=== PATIENT | male | born 1950 | race Caucasian/White ===

== ENCOUNTER 2017-09-02 07:53 | Day surgery (SDC) | payer OTHER, SELFPAY ==
[2017-09-02] VITALS (8 sets, daily range): BP systolic 120–141; BP diastolic 77–94; PULSE 63–82; RESP 8–18; TEMP 36–36.6; O2SAT 93–97; BMI 33.1
[2017-09-02] MEDS: LACTATED RINGERS 1,000 ML 42 ML IV (08:42)
--- NOTE | 2017-09-02 08:46 | PM.PREOP ---
Pre-operative Note Interval Note Pre-op Check: History & Physical Reviewed by Physician
--- NOTE | 2017-09-02 08:47 | SUR.PREOP ---
Pt is ready for OR at this time. 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 PIV in place, Nursing admission database is completed, and LR is running at [facility]. Antibiotics hanging and Anesthesia will administer while in the OR.
[2017-09-02] MEDS: CEFAZOLIN 2 GM/100 ML FROZ.PIGGY IV (08:52)
--- NOTE | 2017-09-02 09:13 | SUR.OPER ---
Supine on padded OR bed, head on pillow, arms secured on padded arm boards at <90 degrees abduction, legs uncrossed, safety belt at thigh, tape over blanket over lower legs.
--- NOTE | 2017-09-02 09:24 | SUR.OPER ---
Counts confirmed by Kwame Sy STS, Brandin Hsu CLINICAL STUDIES SPECIALIST, new scrubs not in system
[2017-09-02] MEDS: CEFAZOLIN 1 GM VIAL IV (09:29)
[2017-09-02] MEDS: BUPIVACAINE 0.5% (PF) 30 ML VIAL INJ (09:35)
--- NOTE | 2017-09-02 10:09 | P.OP_ITS ---
Operative Date/Time/Diagnoses - Date of procedure: 09/02/17 Time of procedure: 10:04 Pre-op diagnosis: Enlarging and painful umbilical hernia Post-op diagnosis: same Procedure & Clinicians Procedure: Umbilical hernia repair Same procedure as scheduled: Yes Indications: Enlarging and painful umbilical hernia Surgeon: Saranya Rojas Click Yes if Unassisted: Yes Anesthesia Type: General (William) and Local Operative Notes Findings: 3 cm umbilical defect containing preperitoneal fat and a knuckle of small bowel Closure Type: primary Specimen(s): none sent Implants & Drains: 8 cm C qur mesh implant Applied: implant(s) Estimated Blood Loss (mL): 15 Procedure in detail: After obtaining informed consent, the patient was brought to the operating room and placed in the supine position on the operating table. Following successful induction of general endotracheal anesthesia, appropriate padding of all bony prominences, and placement of appropriate monitors, the abdomen was prepped and draped in the standard surgical fashion. A timeout was held per SCOAP protocol. We began by infiltrating a mixture of local anesthetics directly over the hernia defect in the fascia around the defect at the umbilicus. This was done to create a field block. An incision was then created directly over the hernia defect and the palpable sac. This was carried carefully down through the skin and subcutaneous tissue until the sac was easily visible and palpable. The edges of the hernia were carefully defined. It was determined to be approximately 3 cm in greatest dimension. The contents of the hernia sac consisted of preperitoneal fat a knuckle of small bowel. We elected to repair the defect with a 8 x 8 cm portion of C-Qur mesh. This was dipped in Ancef- containing solution and deployed into the defect per commercial real estate associate's directions. Careful attention was paid to the position of the mesh and to be sure that it was flattened in the space up against the abdominal wall. It was sewn into place with the securing tags using 1-0 Prolene suture. The wound was checked for hemostasis and irrigated with warm saline solution. When we were satisfied that all was clean and dry, the incision was closed in 2 layers with Vicryl and Monocryl suture, recreate button in a pleasing aesthetic fashion. The dermis of the skin over the umbilicus was sewn to the fascial edge of the umbilical defect. Monocryl was then used to create a subcuticular stitch. All sponge, needle, and instrument counts were correct at the conclusion of the case. The patient was allowed to awaken from anesthesia without difficulty and taken to the post-anesthesia care unit in good condition. Complications: none Condition: stable Disposition: PACU Plan for aftercare: 1. Discharge to home 2. Follow up with me in 2 weeks
--- NOTE | 2017-09-02 10:53 | SUR.PHASEI ---
BESIDE REPORT GIVEN TO XU DUMONT IN OPD. PT IN STABLE CONDITION, VSS. PT APPEARS COMFORTABLE AT THIS TIME. ABD BINDER IN PLACE AND SURGICAL SITE OBSERVED TO BE C/D/I. PT TOLERATING ORAL INTAKE WITHOUT ANY DIFFICULTLY. PT DENIES ANY NAUSEA. PT AWAITING RETURN OF SPOUSE FROM GETTING RX FILLED. BED IN LOWEST POSITION AND CALL LIGHT GIVEN TO PT.
--- NOTE | 2017-09-02 11:18 | SUR.PHASEII ---
Pt ready for discharge at this time. Teaching done with both and Pt and both indicate understanding of discharge and home instructions. Post op appointment with Dr Rojas has been made, Pt tolerating fluids, and has gotten discharge medications from the pharmacy. Pt has met d/c to home criteria and is in stable condition at time of release home. All questions were answered, abdominal binder is in place and Pt and Cori indicate wound care instructions as well. No questions or concerns at this time.
== END 2017-09-02 11:27 | disposition home or self-care (01) ==
PROVIDERS: PCP Internal Medicine; Visit Provider Surgery
PROC: (CPT 49585; principal; 2017-09-02 08:45)
DX: K42.0 Umbilical hernia with obstruction, without gangrene (principal); I10 Essential (primary) hypertension; F41.9 Anxiety disorder, unspecified
CPT/HCPCS: 49585; C1781; J0690; J1100; J2250; J2704; J2765; J3010

== ENCOUNTER → 2019-03-07 17:06 | Outpatient (CLI) | payer OTHER, SELFPAY ==
--- NOTE | 2019-03-07 | DI.MRI.S_ITS ---
PROCEDURE: MR LUMBAR SPINE WO CON INDICATIONS: low back pain TECHNIQUE: Noncontrast sagittal T1 spin echo and T2 fast echo, sagittal STIR, axial T1 and T2 fast spin echo through the lumbar spine. In cases with scoliosis, additional coronal T2 fast spin echo may be performed. COMPARISON: [facility], MR, L-SPINE WITHOUT CONTRAST, 01/21/2011, 19:02. [facility], CR, XR LUMBAR SPINE 2 OR 3 VIEWS, 02/18/2019, 13:48. FINDINGS: Image quality: Excellent. Alignment and Curvature: There is trace L1-L2, L2-L3 and L3-L4 retrolisthesis. Bones: Postsurgical changes compatible with right L3-L4 laminotomy. Reactive endplate change is noted adjacent to the T12-L1, L1-L2, L2-L3, L3-L4 and L4-L5 discs. No acute vertebral body compression fractures. Spinal Cord: Conus medullaris terminates at the T12-L1 disc level. Visualized cord demonstrates normal signal and size. Paraspinous Soft Tissues: No paravertebral masses. T12-L1: Loss of disc signal and height. Moderate, diffuse disc bulge. Mild bilateral facet hypertrophy. Moderate narrowing of the central canal. Mild right and moderate left neural foraminal narrowing. No neural compression. L1-L2: Loss of disc signal and height. Moderate, diffuse disc bulge. Mild bilateral facet hypertrophy. Moderate narrowing of the central canal. Mild bilateral neural foraminal narrowing. No neural compression. L2-L3: Loss of disc signal and height. Moderate, diffuse disc bulge. Mild bilateral facet hypertrophy. Moderate narrowing of the central canal. Right central disc protrusion. Right central disc protrusion impinges upon the traversing right L3 nerve root. Moderate bilateral neural foraminal narrowing. L3-L4: Loss of disc signal and slight loss of disc height. Mild, diffuse disc bulge. Mild bilateral facet hypertrophy. Mild narrowing of the central canal. Moderate to severe bilateral neural foraminal narrowing with slight compression of the exiting L3 nerve roots. L4-L5: Loss of disc signal and height. Mild, diffuse disc bulge. Mild right moderate left facet hypertrophy. Mild to moderate narrowing of the central canal. Moderate to severe bilateral neural foraminal narrowing with slight compression of the exiting L4 nerve roots. L5-S1: Loss of disc signal. Mild to moderate diffuse disc bulge. Severe bilateral facet hypertrophy. Moderate narrowing of the central canal. Moderate bilateral neural foraminal narrowing. No neural compression. IMPRESSION: 1. Multilevel degenerative disc disease. 2. Multilevel facet arthropathy. 3. Moderate T12-L1, L1-L2, L2-L3 and L5-S1 central canal narrowing. Mild to moderate L4-L5 central canal narrowing. Mild L3-L4 central canal narrowing. 4. Moderate to severe bilateral L3-L4 and L4-L5 neural foraminal narrowing with slight compression of the exiting bilateral L3 nerve roots and exiting bilateral L4 nerve roots. 5. Right central L2-L3 disc protrusion which abuts and displaces the traversing right L3 nerve root. Dictated by: Marli Linda MD, PhD on 03/08/2019 at 12:01 Approved by: Marli Linda MD, PhD on 03/08/2019 at 12:10
== END ==
PROVIDERS: Family Provider Internal Medicine; PCP Internal Medicine; Visit Provider Orthopaedic Surgery
DX: M51.26 Other intervertebral disc displacement, lumbar region (principal); M51.36 Other intervertebral disc degeneration, lumbar region; M51.37 Other intervertebral disc degeneration, lumbosacral region; M47.816 Spondylosis without myelopathy or radiculopathy, lumbar region; M47.817 Spondylosis without myelopathy or radiculopathy, lumbosacral region; M48.061 Spinal stenosis, lumbar region without neurogenic claudication; M48.07 Spinal stenosis, lumbosacral region
CPT/HCPCS: 72148

== ENCOUNTER → 2019-06-16 13:50 | Outpatient (CLI) | payer OTHER, SELFPAY ==
[2019-06-16 14:34] LABS: BUN Creatinine Ratio 24.5 (6-22); Blood Urea Nitrogen 24 mg/dL (9-20); Estimated Glomerular Filt Rate > 60.0 mL/min (>60)
--- NOTE | 2019-06-16 14:53 | DI.CT.S_ITS ---
PROCEDURE: CT ABDOMEN PELVIS WO/W CON INDICATIONS: Other microscopic hematuria TECHNIQUE: Optional 5 mm thick noncontrast images acquired from the diaphragm to the symphysis pubis. After the administration of intravenous contrast, 5 mm thick images acquired from the diaphragm to the symphysis pubis after a 10-minute delay. 2 mm thick coronal and sagittal reformats were then performed of the kidneys and ureters. For radiation dose reduction, the following was used: automated exposure control, adjustment of mA and/or kV according to patient size. COMPARISON: None. FINDINGS: Image quality: Excellent. Lung bases: Lung bases are clear. Heart size is normal. Urinary system: Both kidneys are normal in size, without hydronephrosis. There is a 6 mm, nonobstructing, left lower pole collecting system calcification. No perinephric fat stranding. There is normal bilateral renal enhancement. An exophytic 3 x 1 cm cyst arises from the lower pole of the left kidney. Small corticomedullary cysts are also seen in the left lower pole and right lower pole. No suspicious solid masses. Renal calyces appear normal in morphology when filled with contrast. Opacified portions of both ureters demonstrate normal caliber. Bladder wall thickness is normal. No calcified bladder stones. The prostate gland is moderately enlarged measuring 6.4 x 4.2 x 4.8 cm. Other solid organs: Liver is normal in size and enhancement. Gallbladder is normal. Biliary system is non dilated. Pancreas enhances normally. Spleen is normal in size and enhancement. No adrenal nodules. Peritoneum and bowel: Bowel loops demonstrate normal wall thickness and caliber. Diverticular disease of the descending and sigmoid colon. Normal appendix. No free fluid or air. Nodes and vessels: No retroperitoneal or mesenteric adenopathy by size criteria. Aorta and inferior vena cava are normal in size. Abdominal wall: No ventral hernias. Low-density soft tissue irregular thickening within the peritoneum in the umbilical region suggests recent hernia repair. Pelvis: No pathologic free pelvic fluid. Very small fat containing right inguinal hernias. Bones: No suspicious bony lesions. Multilevel degenerative disc and endplate changes throughout the lumbar spine, most severe at the L2-3 level. No vertebral body compression fractures. IMPRESSION: 1. 6 mm nonobstructing left lower pole intrarenal calcification. 2. No evidence of obstructive uropathy or other lesions in the urinary collecting system. 3. Moderate prostatomegaly. 4. Diverticulosis without acute diverticulitis. 5. 3.1 cm exophytic left renal cyst. Dictated by: Dorcas Ibrahim M.D. on 06/16/2019 at 15:55 Approved by: Dorcas Ibrahim M.D. on 06/16/2019 at 16:08
== END ==
PROVIDERS: Family Provider Internal Medicine; PCP Internal Medicine; Referring Provider Urology; Visit Provider Urology
DX: R31.29 Other microscopic hematuria (principal); K57.30 Diverticulosis of large intestine without perforation or abscess without bleeding; N28.1 Cyst of kidney, acquired; N20.0 Calculus of kidney; N40.0 Benign prostatic hyperplasia without lower urinary tract symptoms
CPT/HCPCS: 36415; 74178; 82565; 84520; Q9967

== ENCOUNTER 2020-10-07 21:57 | Emergency (ER) | payer OTHER, SELFPAY ==
[2020-10-07 22:15] VITALS: BP 161/84; PULSE 78; RESP 20; TEMP 36.7; O2SAT 99
[2020-10-07 22:36] LABS: Add Manual Diff / Slide Review NO; Basophils Absolute Auto 100 /uL (0-100); Basophils Percent Auto 0.6 % (0-2); Eosinophils Absolute Auto 0 /uL (0-450); Eosinophils Percent Auto 0.1 % (2-4); Hematocrit 47.5 % (41-53); Hemoglobin 15.6 g/dL (13.5-17.5); Lymphocytes Absolute Auto 1300 /uL (1100-4500); Lymphocytes Percent Auto 12.7 % (25-40); Mean Corpuscular HGB Conc 32.9 % (30-36); Mean Corpuscular Volume 85.3 fL (80-100); Monocytes Absolute Auto 400 /uL (0-900); Monocytes Percent Auto 3.9 % (3-14); Neutrophils Absolute Auto 8500 /uL (1500-7000); Neutrophils Percent Auto 82.7 % (50-75); Platelet Count 174 X10^3/uL (150-400); Red Blood Cell Count 5.56 X10^6/uL (4.5-5.9); Red Cell Distribution Width 15.2 % (11.6-14.8); White Blood Cell Count 10.3 X10^3/uL (4.5-11.0)
--- NOTE | 2020-10-07 22:38 | ED_ITS ---
HPI - Abdominal Pain General Chief Complaint: Abdominal Pain Stated Complaint: STOMACH PAINS Time Seen by Provider: 10/07/20 22:30 Source: patient Mode of arrival: Ambulatory History of Present Illness HPI narrative: The patient is here with abdominal pain. Earlier today he had right flank pain, not radiating. That pain is improved. He now has generalized abdominal discomfort, he feels bloated. He had chills, no fever. He has no mesfin sea, vomiting or diarrhea. BMs are actually decreased. His physician has indicated previously that he has IBS. He has also been previously diagnosed with a renal stone. He has never passed a kidney stone. He has no scrotum discomfort at this time. He has no dysuria or hematuria. He is status post umbilical hernia repair, no history of bowel obstruction. Related Data Home Medications Medication Instructions Recorded Confirmed Dehydroepiandrosterone, Micr 5 mg PO BID #0 02/27/11 09/14/17 (#DHEA) Fish Oil (#EPA FISH OIL) 1,000 mg PO BID #0 02/27/11 09/14/17 OMEPRAZOLE 20 mg PO BID #0 02/27/11 09/14/17 TRAZODONE HCL (Trazodone HCl) 100 mg PO HS #0 02/27/11 09/14/17 [VIT D] 2,000 iu PO QDAY #0 02/27/11 09/14/17 tadalafil 10 mg tablet (Cialis) 10 mg PO PRN #0 02/27/11 09/14/17 DIPHENHYDRAMINE HCL 25 mg PO HSP #0 03/04/11 09/14/17 (Diphenhydramine Hydrochloride) Nortriptyline Hydrochloride 25 mg PO HS #0 03/04/11 09/14/17 (PAMELOR) Oxycodone/Acetaminophen (Percocet 0 tab PO Q4HP #0 03/04/11 09/14/17 5-325 MG Tablet) polyethylene glycol 3350 17 17 gm PO QDAY #0 03/04/11 09/14/17 gram/dose oral powder (Miralax) Cymbalta 60 mg PO BID 09/02/17 09/14/17 doxazosin See Rx Instructions .ROUTE .COMPLEX 09/02/17 09/14/17 gabapentin 300 mg PO TID 09/02/17 09/14/17 propranolol 80 mg capsule,24 80 mg PO DAILY 09/02/17 09/14/17 hr,extended release Previous Rx's Medication Instructions Recorded ondansetron 4 mg disintegrating 4 mg PO Q6H PRN #20 tab MDD 4 09/02/17 tablet oxycodone-acetaminophen 10 mg-325 1 tab PO Q4-6H PRN #30 tab MDD 5 09/02/17 mg tablet (Endocet) metoclopramide HCl 10 mg tablet 10 mg PO Q8H PRN #30 tab 10/08/20 (Reglan) Allergies Allergy/AdvReac Type Severity Reaction Status Date / Time erythromycin base AdvReac Mild Gastrointestinal Verified 09/14/17 15:28 Upset Review of Systems Constitutional Constitutional: Denies body ache(s), Reports chills, Denies fatigue, Denies feve r(s) and Denies headache(s) Eyes Comments: No eye complaints. ENT Ears, Nose, Mouth, and Throat: Denies dizziness, Denies headache(s) and Denies sore throat Cardiovascular Cardiovascular: Denies chest pain, Denies rapid heart rate, Denies leg edema and Denies dyspnea Respiratory Respiratory: Denies cough and Denies dyspnea Gastrointestinal Gastrointestinal: Reports as per HPI Genitourinary Genitourinary: Reports as per HPI Musculoskeletal Musculoskeletal: Reports back pain Comments: Back pain, see HPI. Integumentary/Breasts Skin/Breast: Denies rash and Denies sores Neurologic Neurologic: Denies confusion, Denies dizziness, Denies headache(s) and Denies localized weakness Psychiatric Psychiatric: Denies confusion Endocrine Endocrine: Denies fatigue Hematologic/Lymphatic On Anticoagulants: No Patient History Medical History (Updated 10/08/20 @ 00:08 by Vikas Kitchen MD) Ankle fracture, left Asthma Elevated cholesterol Gastric reflux Hypertension Impaired vision Nerve pain PVCs (premature ventricular contractions) Sleep apnea Umbilical hernia Umbilical hernia Ventricular bigeminy Surgical History H/O hemorrhoidectomy H/O hernia repair H/O sinus surgery History of laminectomy History of vasectomy Social History household members: spouse Smoking Status: Never smoker Smoking Status: Never smoker Exam Initial Vital Signs Initial Vital Signs: Vital Signs Temperature 98.1 F 10/07/20 22:15 Pulse Rate 78 10/07/20 22:15 Respiratory Rate 20 10/07/20 22:15 Blood Pressure 161/84 H 10/07/20 22:15 Pulse Oximetry 99 10/07/20 22:15 Const General: cooperative, comfortable and well developed [facility] Head: normocephalic Mouth: oral mucosae normal Eyes General: appearance normal, both eyes and all related structures Pupils: PERRL EOM: EOM intact bilaterally Neck Neck: No JVD Chest Chest: normal inspection of the chest Resp Effort & Inspection: normal respiratory effort Auscultation: clear to auscultation bilaterally Cardio Rate: regular rate Rhythm: regular rhythm Heart Sounds: S1 normal, S2 normal and no murmurs GI Inspection: distended Palpation: soft Percussion: normal to percussion Auscultation: normal bowel sounds and other (No guarding or rebound) Back/Spine/Pelvis Back: No CVA tenderness Skin General: no rashes or lesions noted Neuro General: patient alert, patient oriented x3 and no focal motor deficits Extrem General: normal to inspection, no pedal edema and no calf tenderness Psych Appearance: grossly normal Course Course Course Narrative: Abdominal discomfort is relieved the Reglan and Benadryl. On repeat exam, his abdomen is nontender. Bowel sounds are normal. He mentioned he may have IBS, I will treat him with Reglan. Orders Ordered: ED Orders 10/07/20 22:15 Complete Blood Count AUTO DIFF Stat Comprehensive Metabolic Panel Stat Lipase Stat 10/07/20 22:50 Urine Microscopic Stat Discontinued Medications Diphenhydramine HCl (Diphenhydramine 50 Mg/Ml Vial) 25 mg IV NOW ONE Stop: 10/07/20 22:38 Last Admin: 10/07/20 22:42 Dose: 25 mg Documented by: FROILAN Metoclopramide HCl (Metoclopramide 10 Mg/2 Ml Inj) 10 mg IV NOW ONE Stop: 10/07/20 22:38 Last Admin: 10/07/20 22:42 Dose: 10 mg Documented by: FROILAN Vital Signs Vital signs: Vital Signs - 8 hr 10/07/20 22:15 10/07/20 22:48 10/07/20 22:49 Temperature 98.1 F Pulse Rate 78 58 L Respiratory Rate 20 Blood Pressure 161/84 H 182/79 H Pulse Oximetry 99 95 95 10/07/20 23:00 Temperature Pulse Rate 62 Respiratory Rate 16 Blood Pressure 168/77 H Pulse Oximetry 94 MDM - Abdominal Pain Lab Data Result diagrams: 10/07/20 22:15 10/07/20 22:15 Labs: Lab Results 10/07/20 10/07/20 10/07/20 Range/Units 22:15 22:15 22:50 WBC 10.3 (4.5-11.0) X10^3/uL RBC 5.56 (4.5-5.9) X10^6/uL Hgb 15.6 (13.5-17.5) g/dL Hct 47.5 (41-53) % MCV 85.3 (80-100) fL MCH 28.0 (26-34) PG MCHC 32.9 (30-36) % RDW 15.2 H (11.6-14.8) % Plt Count 174 (150-400) X10^3/uL Neut % (Auto) 82.7 H (50-75) % Lymph % (Auto) 12.7 L (25-40) % [place] % (Auto) 3.9 (3-14) % Eos % (Auto) 0.1 L (2-4) % Baso % (Auto) 0.6 (0-2) % Neut # (Auto) 8500 H (8483-3885) /uL Lymph # (Auto) 1300 (3551-2656) /uL [place] # (Auto) 400 (0-900) /uL Eos # (Auto) 0 (0-450) /uL Baso # (Auto) 100 (0-100) /uL Sodium 140 (137-145) mmol/L Potassium 4.2 (3.4-5.1) mmol/L Chloride 107 (98-107) mmol/L Carbon Dioxide 24 (22-32) mmol/L BUN 31 H (9-20) mg/dL Creatinine 1.19 (0.66-1.25) mg/dL Estimated GFR > 60.0 (>60) mL/min BUN/Creatinine Ratio 26.1 H (6-22) Glucose 136 H (80-110) mg/dL Calcium 9.7 (8.4-10.2) mg/dL Total Bilirubin 0.6 (0.2-1.3) mg/dL AST 32 (17-59) IU/L ALT 22 (<50) IU/L Alkaline Phosphatase 125 (38-126) U/L Total Protein 7.8 (6.3-8.2) g/dL Albumin 4.4 (3.5-5.0) g/dL Globulin 3.4 (1.7-4.1) g/dL Albumin/Globulin Ratio 1.3 (1.0-2.8) Lipase 29 (23-300) U/L Urine RBC 5-10/hpf H (0-5/HPF) Urine WBC 1-5/hpf (0-5/HPF) Ur Squamous Epith Cells 0-1 /hpf (0-5/HPF) Urine Bacteria Few (2-10) H (None) Hyaline Casts 0-1/lpf (None) Urine Mucus 2+ H (Negative) Ur Culture Indicated? Cult not indicated Point of care testing: Urine Dip Bedside Urine Glucose Negative Bedside Urine Bilirubin - Negative Bedside Urine Ketone +/- 5 Urine Specific [place] 1.030 Bedside Urine Occult Blood + Bedside Urine pH 6 Bedside Urine Protein + 30 Bedside Urine Urobilinogen - Negative Bedside Urine Nitrite - Negative Bedside Urine Leukocytes - Negative Esterase ECG Data Attestation: I personally reviewed and interpreted this ECG as follows: (Sinus bradycardia rate 56 beats per minute. Incomplete RBBB. Probable old septal MN, no acute ST T wave changes. No ectopy.) Discharge Plan Departure Patient Disposition: Home Clinical Impression: Irritable bowel syndrome Qualifiers: Irritable bowel syndrome type: with constipation Qualified Code(s): K58.1 - Irritable bowel syndrome with constipation Instructions: Irritable Bowel Syndrome Activity Restrictions/Additional Instructions: Be sure you are drinking plenty of fluids all times, you should be on a high- fiber diet. Continue current medications. Reglan every 8 hours as needed for abdominal discomfort. Follow-up with your doctor within a week to recheck, return here if symptoms worsen. Prescriptions: New metoclopramide HCl [Reglan] 10 mg tablet 10 mg PO Q8H PRN (Reason: nausea and vomiting) Qty: 30 RF: 0 No Action tadalafil [Cialis] 10 MG tablet 10 mg PO PRN Qty: 0 RF: 0 OMEPRAZOLE 20 mg PO BID Qty: 0 RF: 0 TRAZODONE HCL (Trazodone HCl) 100 mg PO HS Qty: 0 RF: 0 [VIT D] 2,000 iu PO QDAY Qty: 0 RF: 0 Dehydroepiandrosterone, Micr (#DHEA) 5 mg PO BID Qty: 0 RF: 0 Fish Oil (#EPA FISH OIL) 1,000 mg PO BID Qty: 0 RF: 0 polyethylene glycol 3350 [Miralax] 119 GM powder 17 gm PO QDAY Qty: 0 RF: 0 Nortriptyline Hydrochloride (PAMELOR) 25 mg PO HS Qty: 0 RF: 0 DIPHENHYDRAMINE HCL (Diphenhydramine Hydrochloride) 25 mg PO HSP Qty: 0 RF: 0 Oxycodone/Acetaminophen (Percocet 5-325 MG Tablet) 0 tab PO Q4HP Qty: 0 RF: 0 propranolol 80 mg Capsule,Extended Release 24 Hr 80 mg PO DAILY RF: 0 gabapentin 300 Mg 300 mg PO TID RF: 0 Cymbalta 60 Mg 60 mg PO BID RF: 0 doxazosin 4 Mg See Rx Instructions .ROUTE .COMPLEX RF: 0 oxycodone-acetaminophen [Endocet] 10-325 mg tablet 1 tab PO Q4-6H MDD 5 PRN (Reason: pain) Qty: 30 RF: 0 ondansetron 4 mg tablet,disintegrating 4 mg PO Q6H MDD 4 PRN (Reason: nausea and vomiting) Qty: 20 RF: 0 Referrals: Fredi Ndiaye MD [Primary Care Provider] -
[2020-10-07] MEDS: diphenhydrAMINE 50 MG/ML VIAL 25 MG IV (22:42)
[2020-10-07] MEDS: METOCLOPRAMIDE 10 MG/2 ML INJ IV (22:42)
[2020-10-07 22:45] LABS: Alanine Aminotransferase 22 IU/L (<50); Albumin 4.4 g/dL (3.5-5.0); Albumin Globulin Ratio 1.3 (1.0-2.8); Alkaline Phosphatase 125 U/L (38-126); Aspartate Aminotransferase 32 IU/L (17-59); BUN Creatinine Ratio 26.1 (6-22); Bilirubin Total 0.6 mg/dL (0.2-1.3); Blood Urea Nitrogen 31 mg/dL (9-20); Calcium 9.7 mg/dL (8.4-10.2); Carbon Dioxide 24 mmol/L (22-32); Chloride 107 mmol/L (98-107); Estimated Glomerular Filt Rate > 60.0 mL/min (>60); Globulin 3.4 g/dL (1.7-4.1); Glucose 136 mg/dL (80-110); HEMOLYSIS 22 (0-50); Lipase 29 U/L (23-300); Potassium 4.2 mmol/L (3.4-5.1); Sodium 140 mmol/L (137-145); Total Protein 7.8 g/dL (6.3-8.2)
[2020-10-07 22:48] VITALS: O2SAT 95
[2020-10-07 22:49] VITALS: BP 182/79; PULSE 58; O2SAT 95
[2020-10-07 23:00] VITALS: BP 168/77; PULSE 62; RESP 16; O2SAT 94
[2020-10-07 23:18] LABS: Bacteria Urine Few (2-10); Culture Indicated Urine Cult Not Indicated; Hyaline Casts Urine 0-1/LPF; Mucus Urine 2+ (Negative); RBC Urine 5-10/HPF (0-5/HPF); Squamous Epithelial Cell Urine 0-1 /HPF (0-5/HPF); WBC Urine 1-5/HPF (0-5/HPF)
[2020-10-08 00:23] VITALS: BP 139/70; PULSE 71; RESP 16; O2SAT 96
== END 2020-10-08 00:24 | disposition home or self-care (01) ==
PROVIDERS: Emergency Provider Emergency Medicine; Family Provider Internal Medicine; PCP Internal Medicine
DX: K58.1 Irritable bowel syndrome with constipation (principal)
CPT/HCPCS: 36415; 80053; 81003; 81015; 83690; 85025; 93005; 93010; 96374; 96375; 99284; J1200; J2765

== ENCOUNTER → 2021-07-08 13:07 | Outpatient (CLI) | payer OTHER, SELFPAY ==
--- NOTE | 2021-07-08 | DI.RAD.S_ITS ---
PROCEDURE: FL BARIUM SWALLOW W SPEECH INDICATIONS: Dysphagia, unspecified COMPARISON: None. TECHNIQUE: Examination was conducted in conjunction with speech pathology per standard protocol. In the lateral projection, filming was performed of the patient swallowing. AP projection filming may also be performed with patient swallowing. COMPARISON: FINDINGS: Function: The oral preparatory phase appears normal, with containment within normal limits. The subsequent oral propulsive phase, pharyngeal phase, and esophageal phase of swallowing also appear normal with all proffered substances. There is laryngotracheal penetration with sequential boluses. No aspiration. No pathologic vallecular pooling. Morphology: No cricopharyngeal bar is identified. No cervical esophageal webs. No Zenker's diverticulum. No strictures. Rapid passage of the barium tablet. Small hiatal hernia. IMPRESSION: Intermittent laryngotracheal penetration. Small hiatal hernia. Please see separately dictated speech pathologist's report. Dictated by: Tio Barber M.D. on 07/08/2021 at 14:41 Approved by: Tio Barber M.D. on 07/08/2021 at 15:05
--- NOTE | 2021-07-08 16:42 | ST.SWALLOW ---
Visit Care Team Role Provider Type Fredi Ndiaye MD Family Provider Non-Staff Primary Care Provider Specialty: Internal Medicine Address: [address] 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 Modified Barium Swallow Study Start: 07/08/21 16:18 Freq: Status: Active Protocol: Document 07/08/21 16:18 SYLVAIN (Rec: 07/08/21 16:42 SYLVAIN [id number]) Modified Barium Swallow Study Total Time Visit Start Time 13:30 Visit Stop Time 14:10 Total Visit Minutes 40 Referral Referring Physician Markus Magana MD Reason for Referral Dysphagia Setting Setting Outpatient Care Patient Information Identification Type Name,ID Card Patient History The pt is a 70-yr-old male with complaints of coughing primarily with liquids, especially citrus, and rare coughing with solids occurring over the last year and increasing in recent months. He reported presence of hiatal hernia, GERD, and PND. Subjective Observations The pt arrived on time and provided case history supplemental to medical records. He was seated in chair and procedure was explained. Pt was agreeable to participation. Patient Positioning Position View Lat-A/P Imaging Lateral View Textures Administered Trials Presented Thin Liquid via Spoon,Thin Liquid via Cup,[place] Liquid via Spoon,[place] Liquid via Cup,Honey Liquid via Spoon, Dysphagia Blenderized Textures ,Regular Textures Oral Phase Source: MBSIMP (TM) (C) Bolus Specific Scoring Grid Lip Closure No Impairment (WNL) Tongue Control During Bolus Hold No Impairment (WNL) Bolus Prep/Mastication No Impairment (WNL) Bolus Transport/Lingual Motion No Impairment (WNL) A/P Lingual Propulsion Delay Occ escape of bolus to vallecula prior to a/p propulsion Oral Residue WFL Residue Clearing No Impairment (WNL) Nasal Regurgitation No Additional Oral Phase Observations Oral Peripheral Exam: WNL. Pt is missing a few molars. Otherwise, dentition is complete and in good condition. Features were all symmetrical and WNL for strength, coordination and ROM. Occasional posterior escape to pharynx prior to swallow onset was observed, indicating mildly reduced back of tongue strength. Pharyngeal Phase Source: MBSIMP (TM) (C) Bolus Specific Scoring Grid Delayed Initiation of Pharyngeal Swallow Yes Soft Palate Elevation No Impairment (WNL) Tongue Base Strength/Range of Motion Minimal Impairment Residue Along the Tongue Base Yes Clearance of Residue Along Tongue Base No Impairment (WNL) Laryngeal Elevation Mild Impairment Anterior Hyoid Movement Mild Impairment Epiglottic Range of Motion No Impairment (WNL) Vallecular Residue Yes: Trace to Mild Clearance of Vallecular Residue WFL Laryngeal Vestibular Closure Mild Impairment Pharyngeal Stripping Wave Minimal Impairment Pharyngeal Contraction No Impairment (WNL) Posterior Pharyngeal Wall Residue No Upper Esophageal Sphincter Opening No Impairment (WNL) Residue in the Pyriform Sinuses No Esophageal Clearance Upright Position WFL Pharyngoesophageal Backflow Observed No Additional Pharyngeal Phase Observations Flash penetration (PAS 2) of thin and nectar-thick liquids was observed during consecutive sips. Hyolaryngeal elevation and anterior excursion were present but reduced, likely contributing to reduced closure of the laryngeal vestibule, allowing for penetration. No aspiration was observed. A/P View Textures Administered Trials Presented [place] Liquid via Cup, Dysphagia Blenderized Textures ,Barium Tablet A/P View Observations Pharyngeal Contraction No Impairment (WNL) Residue Observed Valleculae Right,Valleculae Left Esophageal Function WFL Esophageal Clearance Upright Position WFL Additional Observations Upon initial A/P view of esophagus, residue from previous trials was observed. All trails administered in A/P view then cleared without difficulty. Radiologist noted small hiatal hernia. The pt already is scheduled for GI consultation. Clinical Impressions Dysphagia Type Mild oropharyngeal dysphagia Findings The pt presents with mild oropharyngeal dysphagia consistent with age and secondary to mild weakness of lingual and hyolaryngeal musculature. This allows for escape of boluses to the vallecula prior to onset of swallow and for laryngeal penetration of thin and nectar -thick liquids during consecutive sipping. Recommend a short course of dysphagia therapy targeting exercises to increase strength, coordination and ROM of swallow musculature. Also recommend the pt consume liquids in single sips. The pt is already scheduled to be seen by GI, which is recommended for assessment of hiatal hernia and GERD and potential impact on swallow function and safety. Rehabilitation Potential Excellent Patient Appropriate for Therapy Yes Recommendations Diet Liquids Order Thin Diet Order Regular Medication Recommendation As Tolerated Aspiration Precautions Recommended Precautions Upright at 90 Degrees,Small Bites/Sips Treatment Plan Therapy Recommendations Outpatient Speech Therapy Short Term Goals 1. The pt will follow safe swallow strategies to reduce risk of aspiration. 2. The pt will perform exercises to improve strength, coordination, and ROM of lingual and hyolaryngeal musculature to reduce risk of aspiration and increase safety and comfort with oral intake. Fpc Goals 1. The pt will tolerate regular textures and thin liquids without overt s/sx of aspiration.
== END ==
PROVIDERS: Family Provider Internal Medicine; PCP Internal Medicine; Referring Provider Internal Medicine Critical Care Medicine; Visit Provider Internal Medicine Critical Care Medicine
DX: R13.10 Dysphagia, unspecified (principal); K44.9 Diaphragmatic hernia without obstruction or gangrene; K21.00 Gastro-esophageal reflux disease with esophagitis, without bleeding; J45.20 Mild intermittent asthma, uncomplicated
CPT/HCPCS: 74230; 92611

== ENCOUNTER → 2021-12-03 09:10 | Outpatient (CLI) | payer OTHER, SELFPAY ==
[2021-12-03 10:59] LABS: COVID19 -Nasal RAPID Negative (Negative)
== END ==
PROVIDERS: Family Provider Internal Medicine; PCP Internal Medicine; Visit Provider Surgery
DX: Z01.812 Encounter for preprocedural laboratory examination (principal); Z20.822 Contact with and (suspected) exposure to COVID-19
CPT/HCPCS: 87635; C9803

== ENCOUNTER 2021-12-04 10:09 | Day surgery (SDC) | payer OTHER, SELFPAY ==
[2021-11-25 08:20] VITALS: BMI 32.3
[2021-12-04] VITALS (9 sets, daily range): BP systolic 101–136; BP diastolic 64–88; PULSE 56–80; RESP 10–20; TEMP 36.3–36.6; O2SAT 91–99; BMI 32.3; BMI 30.4
[2021-12-04] MEDS: LACTATED RINGERS 1,000 ML 100 ML IV (10:59)
[2021-12-04] MEDS: ACETAMINOPHEN 325 MG TABLET 975 MG PO (11:00)
--- NOTE | 2021-12-04 11:19 | PM.HP.1 ---
History of Present Illness History of Present Illness Date Patient Seen: 12/04/21 Time Patient Seen: 11:20 Chief complaint: SDC Narrative: 71-year-old male here for a open repair of recurrent umbilical hernia. Please refer to the H&P from August 2021 for further detail. No interval changes in health. Patient History Medical History Ankle fracture, left Asthma COPD (chronic obstructive pulmonary disease) Elevated cholesterol Gastric reflux Hypertension Impaired vision Nerve pain PVCs (premature ventricular contractions) Sleep apnea Umbilical hernia Umbilical hernia Ventricular bigeminy Surgical History H/O hemorrhoidectomy H/O hernia repair H/O sinus surgery History of laminectomy History of vasectomy Hx of hernia repair (09/02/17) Family & Social History Social History: household members spouse Tobacco & Substance use: Smoking Status Never smoker alcohol intake never Substance Use Type does not use Meds Home Medications and Allergies Home Medications Medication Instructions Recorded Confirmed Type polyethylene glycol 3350 17 17 gm PO QDAY ##0 03/04/11 12/04/21 History gram/dose oral powder (Miralax) gabapentin 300 mg capsule 300 mg PO QID PRN neuropathy 09/02/17 12/04/21 History dextroamphetamine sulfate 15 mg See Rx Instructions .Route .COMPLEX 09/05/21 12/04/21 History capsule,extended release (Dexedrine Spansule) ibuprofen 200 mg tablet 200 mg PO BID 09/05/21 12/04/21 History lamotrigine 100 mg tablet 100 mg PO DAILY 09/05/21 12/04/21 History (Lamictal) omeprazole 20 mg capsule,delayed 20 mg PO BID 09/05/21 12/04/21 History release propranolol 60 mg tablet 60 mg PO ONCE 09/05/21 12/04/21 History tamsulosin 0.4 mg capsule 0.8 mg PO BEDTIME 09/05/21 12/04/21 History testosterone 1 % (50 mg/5 gram) 1 packet transdermal DAILY 09/05/21 12/04/21 History transdermal gel packet albuterol 90 mcg/actuation aerosol 90 mcg inhalation Q4HR PRN 12/04/21 12/04/21 History inhaler Shortness Of Breath cholecalciferol (vitamin D3) 50 50 mcg PO DAILY 12/04/21 12/04/21 History mcg (2,000 unit) capsule (Vitamin D3) duloxetine 60 mg capsule,delayed 60 mg PO DAILY 12/04/21 12/04/21 History release trazodone 50 mg tablet 50 mg PO DAILY 12/04/21 12/04/21 History Allergies Allergy/AdvReac Type Severity Reaction Status Date / Time bupropion [From Wellbutrin] Allergy Severe inability Verified 12/04/21 10:30 to focus cariprazine [From Vraylar] Allergy Severe Diarrhea Verified 12/04/21 10:30 fluoxetine [From Prozac] Allergy Severe agressivene Verified 12/04/21 10:30 ss erythromycin base AdvReac Mild Gastrointestinal Verified 12/04/21 10:30 Upset Exam Vital Signs (past 8 hours): - 12/04/21 10:44 Temperature 97.9 F Pulse Rate 80 Respiratory Rate 12 Blood Pressure 136/88 Pulse Oximetry 95 Oxygen Delivery Method Room Air Oxygen Delivery Method Room Air Narrative Exam Narrative: General adult male alert oriented no acute distress Abdomen reducible umbilical hernia moderate size. Assessment & Plan Assessment and plan (1) Recurrent umbilical hernia: Status: Acute Assessment & Plan narrative: 71-year-old male with a recurrent umbilical hernia here for open elective repair. We reviewed operative details as well as the operative risks including bleeding infection recurrence, damage to surrounding structures chronic pain. He understands that he is at elevated risk of recurrence given his COPD. His questions have been answered and he is in agreement with this plan Time Spent With Patient Critical Care time: I spent a total of [] minutes of critical care time on this patient's care today; this time is exclusive of procedural time.
[2021-12-04] MEDS: CEFAZOLIN 2 GM/100 ML PREMIX 100 ML IV (11:45)
[2021-12-04] MEDS: BUPIVACAINE 0.25% (PF) VIAL 30 ML INJ (12:04)
--- NOTE | 2021-12-04 12:23 | SUR.OPER ---
Supine on padded OR bed, head on pillow, arms secured on padded arm boards at <90 degrees abduction, legs uncrossed, safety belt at thigh, tape over blanket over lower legs. Gel pad under bilateral heels. Pillow under knees.
[2021-12-04] MEDS: PIPERACILLIN/TAZO 3.375 GM in SODIUM CHLORIDE 0.9% 100 ML IV (12:25)
--- NOTE | 2021-12-04 13:14 | P.OP_ITS ---
Operative Date/Time/Diagnoses Date of procedure: 12/04/21 Time of procedure: 13:39 Pre-op diagnosis: Recurrent umbilical hernia Post-op diagnosis: same Procedure & Clinicians Procedure: Open repair of recurrent umbilical hernia. Explantation of mesh Same procedure as scheduled: Yes Indications: 71-year-old male had previous umbilical hernia repair with mesh who is developed a recurrence. Surgeon: Gary Alas Click Yes if Unassisted: Yes Anesthesia Type: General Operative Notes Findings: Recurrence at the superior aspect of prior umbilical repair. Purulence material within the previous mesh concerning for mesh infection. Cultures taken Specimen(s): other (Mesh, umbilical wound culture) Estimated Blood Loss (mL): 50 Procedure in detail: Patient was brought to the operating room placed supine on the table. Bilateral lower extremity compression devices were applied. He received 2 g of Ancef prior to skin incision. General anesthesia was induced and he was intubated with an endotracheal tube. He was prepped and draped in sterile fashion. Time- out was performed. Infraumbilical incision was made, the umbilical skin was adherent to the mesh. The skin was then carefully taken off of the mesh however it at the superior aspect of the repair I had to open the skin in order to rel ease the mesh. There was a recurrence of omentum through the superior aspect of the prior repair. As I was excising the prior mesh from the fascia approximately 30 mL of purulent brown fluid was encountered. The entirety of the mesh was sharply removed there was no bowel within the fascial defect. The mesh appeared to be infected on visual inspection. Cultures were taken. In the setting of possible mesh infection I irrigated the wound thoroughly but I chose not to place any new mesh for concern of contamination. This does place him at higher risk of reoccurence although the alternative mesh infection would be worse. The fascia around the hernia was then exposed circumferentially. The peritoneum was closed with a running Vicryl suture. The fascia was then reapproximated with interrupted Ethibond suture. Subcutaneous tissue was closed with Vicryl skin with Monocryl followed by the application of Dermabond. Patient tolerated the operation well. Complications: none Post-operative Condition: stable Disposition: same day surgery
[2021-12-04] MEDS: ALBUTEROL 2.5 MG/3 ML NEB (ADULT) INH (13:41)
--- NOTE | 2021-12-04 14:17 | SUR.PHASEII ---
1400: Pt A&Ox4, VSS, denies any distress and ready to transition to phase 2. Spoke with spouse and updated on pt condition, and discharge instructions reviewed with time allowed for questions. 1415: Report given to XU Thompson will transfer care now.
== END 2021-12-04 14:34 | disposition home or self-care (01) ==
PROVIDERS: Family Provider Internal Medicine; PCP Internal Medicine; Referring Provider Surgery; Visit Provider Surgery
PROC: (CPT 49585; principal; 2021-12-04 11:15)
DX: K42.9 Umbilical hernia without obstruction or gangrene (principal); J44.9 Chronic obstructive pulmonary disease, unspecified; E78.5 Hyperlipidemia, unspecified; I10 Essential (primary) hypertension; K21.9 Gastro-esophageal reflux disease without esophagitis; G47.33 Obstructive sleep apnea (adult) (pediatric)
CPT/HCPCS: 49585; 82962; 87070; 87075; 87176; 87205; J0690; J1100; J1885; J2250; J2405; J2543; J2704; J3010; J3490; J7613

== ENCOUNTER → 2021-12-31 14:56 | Outpatient (CLI) | payer OTHER, SELFPAY ==
[2021-12-31 16:43] LABS: BUN Creatinine Ratio 17.3 (6-22); Blood Urea Nitrogen 17 mg/dL (9-20); Estimated Glomerular Filt Rate > 60 mL/min (>60)
--- NOTE | 2021-12-31 16:47 | DI.CT.S_ITS ---
PROCEDURE: CT ABDOMEN PELVIS W CON INDICATIONS: evaluate for umbilical hernia recurrence TECHNIQUE: After the administration of oral and intravenous contrast, axial sections were acquired from the lung bases to the pubic symphysis. Coronal and sagittal reformats were performed. For radiation dose reduction, the following was used: automated exposure control, adjustment of mA and/or kV according to patient size. COMPARISON:[facility], CT, CT ABDOMEN PELVIS WO/W CON, 06/16/2019, 14:47. FINDINGS: Image quality: Excellent. Lung bases: Lung bases are clear. Small hiatal hernia. Heart: No significant findings. ABDOMEN: Liver: Liver is unremarkable in appearance without focal intrahepatic abnormalities. No intrahepatic or extrahepatic biliary ductal dilatation. Gallbladder: Unremarkable. Biliary ducts: Unremarkable. Pancreas: Unremarkable. Spleen: Unremarkable. Adrenal Glands: Unremarkable. Kidneys and Ureters: Right kidney and ureter appear normal. There is a nonobstructing 1.0 x 0.7 cm stone noted in the left renal pelvis measuring 660 Hounsfield units. No left-sided hydronephrosis. No perinephric stranding. Left ureter is normal in course and caliber. Stomach and Bowel: Stomach, small bowel loops, and colon are unremarkable. Scattered colonic diverticulosis without acute diverticulitis. Peritoneum: No abnormal intraperitoneal fluid. No free air. Ventral Wall: There is a well-circumscribed fluid attenuation collection visualized in the ventral midline abdomen within the subcutaneous soft tissues of the abdominal wall measuring 8.2 x 3.2 cm in axial cross-sectional dimension. No rim enhancement. No adjacent stranding. There is a possible neck extending to the midline anterior abdominal musculature/fascia without definite defect visualized. Abdominal Nodes: No retroperitoneal or mesenteric adenopathy by size criteria. Vessels: Scattered atherosclerotic calcifications of the abdominal aorta and iliac vessels without aneurysmal dilatation. The inferior vena cava appears patent. PELVIS: Pelvic Organs: Mild prominence of the prostate gland. Bladder: Unremarkable. Pelvic Nodes: No enlarged lymph nodes. Miscellaneous: No inguinal hernias are seen. Bones: No acute vertebral body compression fractures. Multilevel spondylitic changes throughout the imaged spine. No suspicious osseous lesions. Findings suggestive of prior right L3 hemilaminectomy. IMPRESSION: Well-circumscribed fluid collection within the subcutaneous soft tissues of the ventral midline abdomen at the level of the umbilicus measuring 8.2 x 3.2 cm with possible neck leading to the ventral abdominal wall musculature/fascia. No definite ventral wall defect/hernia identified. Colonic diverticulosis without acute diverticulitis. Non-obstructing 1.0 x 0.7 cm left renal pelvic stone without hydronephrosis or perinephric stranding. Atherosclerosis. Other chronic findings as above Approved by: Pascual Arceo M.D. on 01/01/2022 at 11:47
== END ==
PROVIDERS: Family Provider Internal Medicine; PCP Internal Medicine; Referring Provider Surgery; Visit Provider Surgery
DX: K42.9 Umbilical hernia without obstruction or gangrene (principal); K44.9 Diaphragmatic hernia without obstruction or gangrene; K57.90 Diverticulosis of intestine, part unspecified, without perforation or abscess without bleeding; N20.0 Calculus of kidney; I70.0 Atherosclerosis of aorta
CPT/HCPCS: 36415; 74177; 82565; 84520

== ENCOUNTER → 2022-02-26 10:07 | Outpatient (CLI) | payer OTHER, SELFPAY ==
[2022-02-26 10:35] LABS: Estimated Glomerular Filt Rate > 60 mL/min (>60)
--- NOTE | 2022-02-26 10:47 | DI.CT.S_ITS ---
PROCEDURE: CT IVP A/P W/WO INDICATIONS: HISTORY OF BLADDER CANCER TECHNIQUE: Optional 5 mm thick noncontrast images acquired from the diaphragm to the symphysis pubis. After the administration of intravenous contrast, 5 mm thick images acquired from the diaphragm to the symphysis pubis after a 10-minute delay. 2 mm thick coronal and sagittal reformats were then performed of the kidneys and ureters. For radiation dose reduction, the following was used: automated exposure control, adjustment of mA and/or kV according to patient size. COMPARISON: [facility], CT, CT ABDOMEN PELVIS WO/W CON, 06/16/2019, 14:47. [facility], CT, CT ABDOMEN PELVIS W CON, 12/31/2021, 16:53. FINDINGS: Image quality: Excellent. Lung bases: Lung bases are clear. Heart size is normal. Urinary system: On precontrast imaging, there is again seen a stone within the left renal collecting system that measures up to 9 mm and measures 900 Hounsfield units. The kidneys demonstrate normal size and enhance symmetrically. At the inferior pole of the left kidney, there is an exophytic nonenhancing water density cyst seen that measures 3.5 cm. No perinephric fat stranding. Renal calyces appear normal in morphology when filled with contrast. Opacified portions of both ureters demonstrate normal caliber. Bladder wall thickening is seen anteriorly. On these images, no lise bladder wall masses are detected. Other solid organs: Liver is normal in size and enhancement. Gallbladder wall is not thickened. Biliary system is non dilated. Pancreas enhances normally. Spleen is normal in size and enhancement. No adrenal nodules. Peritoneum and bowel: Bowel loops demonstrate normal wall thickness and caliber. No free fluid or air. Colonic diverticulosis is seen, without findings of active diverticulitis. Nodes and vessels: No retroperitoneal or mesenteric adenopathy by size criteria. Aorta and inferior vena cava are normal in size. Atherosclerotic calcification is noted. Abdominal wall: No ventral hernias. Within the anterior abdominal wall near the umbilicus, there is a relatively poorly defined fluid collection seen that measures 5 x 1.5 cm in greatest axial dimension, which is clearly decreased in size compared to the prior CT. Pelvis: No pathologic free pelvic fluid. No inguinal adenopathy. There is a fat containing right inguinal hernia. The prostate measures 6.3 cm transversely. Bones: No suspicious bony lesions. No vertebral body compression fractures. Mild levoconvex scoliotic curvature is noted. Age-appropriate bony degenerative changes are seen. IMPRESSION: Bladder wall thickening is seen anteriorly, without a lsie mass identified. No kidney or ureteral masses are detected. Clear interval decrease in size of the previously seen anterior abdominal wall fluid collection. Additional findings: Nonobstructing left-sided kidney stone Simple appearing, nonenhancing left renal cyst Levoconvex scoliotic curvature Bony degenerative change Diverticulosis, without active diverticulitis Enlarged prostate. Fat containing right inguinal hernia Dictated by: Job Valdez M.D. on 02/26/2022 at 10:03 Approved by: Job Valdez M.D. on 02/26/2022 at 10:11
== END ==
PROVIDERS: Specialist; Family Provider Internal Medicine; PCP Internal Medicine; Referring Provider Urology; Visit Provider Urology
DX: R31.29 Other microscopic hematuria (principal); E78.00 Pure hypercholesterolemia, unspecified; N20.0 Calculus of kidney; N28.1 Cyst of kidney, acquired; N40.0 Benign prostatic hyperplasia without lower urinary tract symptoms; K57.90 Diverticulosis of intestine, part unspecified, without perforation or abscess without bleeding; K40.90 Unilateral inguinal hernia, without obstruction or gangrene, not specified as recurrent; M41.9 Scoliosis, unspecified; Z85.51 Personal history of malignant neoplasm of bladder; Z87.442 Personal history of urinary calculi
CPT/HCPCS: 36415; 74178; 82565; Q9967

== ENCOUNTER → 2022-06-05 12:37 | Outpatient (CLI) | payer OTHER, SELFPAY ==
--- NOTE | 2022-06-05 | DI.RAD.S_ITS ---
PROCEDURE: XR ABDOMEN 1V INDICATIONS: Calculus of kidney TECHNIQUE: One view of the abdomen acquired. COMPARISON: None. FINDINGS: Surgical changes and devices: None. Bowel: Moderate fecal debris in the right colon obscures the renal shadows. Possible mid left renal calculus measures 8 mm. Fecal debris in the colon noted as well. Soft tissues: No suspicious abdominal calcifications. Visualized solid organ contours appear normal in size. Bones: No suspicious bony lesions. IMPRESSION: Probable left renal calculus, 8 mm Right renal shadow obscured by fecal debris Approved by: John Clark M.D. on 06/05/2022 at 19:37
== END ==
PROVIDERS: Family Provider Internal Medicine; PCP Family Medicine; Referring Provider Urology; Visit Provider Urology
DX: N20.0 Calculus of kidney (principal)
CPT/HCPCS: 74018

== ENCOUNTER → 2022-08-15 20:27 | Outpatient (CLI) | payer OTHER, SELFPAY ==
--- NOTE | 2022-08-15 20:31 | DI.RAD.S_ITS ---
PROCEDURE: XR LUMBAR SPINE 2-3V INDICATIONS: M54.30 TECHNIQUE: 3 views of the lumbar spine were acquired. COMPARISON: [facility], MR, L-SPINE WITHOUT CONTRAST, 01/21/2011, 19:02. [facility], CR, XR LUMBAR SPINE 2 OR 3 VIEWS, 02/18/2019, 13:48. [facility], MR, MR LUMBAR SPINE WO CON, 03/07/2019, 17:26. [facility], CT, CT ABDOMEN PELVIS W CON, 12/31/2021, 16:53. FINDINGS: Bones: 5 [id number] vertebrae are present. No vertebral body compression fractures. No suspicious bony lesions. Mild levoconvex scoliotic curvature is noted. Minimal retrolisthesis is seen at T12-L1, L1-L2, L2-L3, and L3-L4. Moderate to severe disc space narrowing can be seen at L2-L3, L3-L4, and L4-L5. Moderate disc space narrowing can be seen at L1-L2 and at L5-S1. Lower lumbar spine facet arthropathy is seen. Moderate bilateral hip degenerative change can be seen, right worse than left. Soft tissues: Overlying bowel gas pattern is normal. An apparent nonobstructing left-sided kidney stone is seen measuring 8 mm. IMPRESSION: Multiple levels of significant lumbar spine degenerative change can be seen, which appear progressed at L3-L4 compared to the prior MRI. If it would be helpful for clinical management decision making, please consider a dedicated, scheduled lumbar spine MRI for further evaluation (assuming that there is no contraindication). Moderate bilateral hip degenerative change can be seen, right worse than left. Dictated by: Job Valdez M.D. on 08/15/2022 at 20:11 Approved by: Job Valdez M.D. on 08/15/2022 at 20:14
== END ==
PROVIDERS: Family Provider Internal Medicine; PCP Family Medicine; Referring Provider Family Medicine; Visit Provider Family Medicine
DX: M54.30 Sciatica, unspecified side (principal)
CPT/HCPCS: 72100

== ENCOUNTER → 2023-01-23 16:59 | Outpatient (CLI) | payer OTHER, SELFPAY ==
--- NOTE | 2023-01-23 | DI.US.S_ITS ---
PROCEDURE: US RENAL COMPLETE INDICATIONS: CALCULUS OF LEFT KIDNEY TECHNIQUE: Real-time scanning was performed of the kidneys and bladder, with image documentation. COMPARISON: [facility], CT, CT KUB, 10/20/2022, 17:17. FINDINGS: Kidneys: Kidneys are normal in size. Right kidney measures 10.5 cm long; left kidney measures 12.5 cm long. Right renal cortical thickness is 1.9 cm; left renal cortical thickness is 1.5 cm. Renal cortical echotexture is normal. No hydronephrosis. Left-sided nephrolithiasis. Bladder: Pre-void bladder volume is 225 mL. Post-void residual is 177 mL. Pre-void images demonstrate no intraluminal masses or stones. On pre-void images, both ureteral jets are noted with color Doppler interrogation. (Of note, ureteral jets may not be detectable in up to 25% of cases due to insufficient differences in specific gravity between ureteral and bladder urine). Miscellaneous: No free pelvic fluid. Prostatomegaly, measuring 4.8 x 6.5 x 3.9 cm. IMPRESSION: Resolved left-sided hydronephrosis. Elevated postvoid residual volume of 177 mL. Prostatomegaly. Dictated by: Warner Dobbs M.D. on 01/23/2023 at 18:41 Approved by: Warner Dobbs M.D. on 01/23/2023 at 18:44
== END ==
PROVIDERS: Family Provider Internal Medicine; PCP Family Medicine; Referring Provider Urology; Visit Provider Urology
DX: N20.0 Calculus of kidney (principal); N40.0 Benign prostatic hyperplasia without lower urinary tract symptoms
CPT/HCPCS: 76770

== ENCOUNTER 2023-09-12 17:09 | Emergency (ER) | payer OTHER, SELFPAY ==
[2023-09-12 17:24] VITALS: BP 169/80; PULSE 73; RESP 16; O2SAT 97; BMI 28.8
--- NOTE | 2023-09-12 18:02 | ED.MALEGU ---
HPI - Male Genitourinary General Chief complaint: Urogenital-Male Stated complaint: prostatitis, pelvic floor pain Time Seen by Provider: 09/12/23 17:16 Source: patient Mode of arrival: Ambulatory History of Present Illness HPI Narrative: Patient is a 73-year-old male with history of prostatitis, anxiety presents today peroneal pain and lower pelvic pain. He reports he has had this discomfort for last couple of days. No significant fever or chills. He has had prostatitis before and it feels the same. He feels like he has more pain with urination and bowel movement. No nausea or vomiting. No chest pain palpitations or shortness of breath. He reports these symptoms have been ongoing for the last 3-4 days Related Data Home Medications Medication Instructions Recorded Confirmed polyethylene glycol 3350 17 17 gm PO QDAY ##0 03/04/11 01/09/22 gram/dose oral powder (Miralax) gabapentin 300 mg capsule 300 mg PO QID PRN neuropathy 09/02/17 01/09/22 dextroamphetamine sulfate 15 mg See Rx Instructions .Route .COMPLEX 09/05/21 01/09/22 capsule,extended release (Dexedrine Spansule) ibuprofen 200 mg tablet 200 mg PO BID 09/05/21 01/09/22 lamotrigine 100 mg tablet 100 mg PO DAILY 09/05/21 01/09/22 (Lamictal) omeprazole 20 mg capsule,delayed 20 mg PO BID 09/05/21 01/09/22 release propranolol 60 mg tablet 60 mg PO ONCE 09/05/21 01/09/22 tamsulosin 0.4 mg capsule 0.8 mg PO BEDTIME 09/05/21 01/09/22 testosterone 1 % (50 mg/5 gram) 1 packet transdermal DAILY 09/05/21 01/09/22 transdermal gel packet albuterol 90 mcg/actuation aerosol 90 mcg inhalation Q4HR PRN 12/04/21 01/09/22 inhaler Shortness Of Breath cholecalciferol (vitamin D3) 50 50 mcg PO DAILY 12/04/21 01/09/22 mcg (2,000 unit) capsule (Vitamin D3) duloxetine 60 mg capsule,delayed 60 mg PO DAILY 12/04/21 01/09/22 release trazodone 50 mg tablet 50 mg PO DAILY 12/04/21 01/09/22 Previous Rx's Medication Instructions Recorded acetaminophen 325 mg capsule 650 mg (2 x 325 mg) PO QID PRN 12/04/21 (Tylenol) pain #60 caps oxycodone 5 mg tablet 5 mg PO Q6H PRN pain #30 tabs 12/04/21 sulfamethoxazole 800 1 tab PO BID #14 tabs 12/04/21 mg-trimethoprim 160 mg tablet (Bactrim DS) cefdinir 300 mg capsule 300 mg PO Q12H #20 caps 09/12/23 Allergies Allergy/AdvReac Type Severity Reaction Status Date / Time bupropion [From Wellbutrin] Allergy Severe inability Verified 01/09/22 14:49 to focus cariprazine [From Vraylar] Allergy Severe Diarrhea Verified 01/09/22 14:49 fluoxetine [From Prozac] Allergy Severe agressivene Verified 01/09/22 14:49 ss erythromycin base AdvReac Mild Gastrointestinal Verified 01/09/22 14:49 Upset Patient History Medical History COPD (chronic obstructive pulmonary disease) Umbilical hernia Umbilical hernia Nerve pain Impaired vision Sleep apnea Ventricular bigeminy Gastric reflux Asthma Ankle fracture, left Hypertension PVCs (premature ventricular contractions) Elevated cholesterol Surgical History Hx of hernia repair (09/02/17) H/O sinus surgery History of vasectomy H/O hernia repair H/O hemorrhoidectomy History of laminectomy Social History household members: spouse Smoking Status: Never smoker alcohol intake: never Smoking Status: Never smoker Substance Use Type: does not use Exam Initial Vital Signs Initial Vital Signs: Vital Signs Pulse Rate 73 09/12/23 17:24 Respiratory Rate 16 09/12/23 17:24 Blood Pressure 169/80 H 09/12/23 17:24 Pulse Oximetry 97 09/12/23 17:24 Oxygen Delivery Method Room Air 09/12/23 17:24 GENERAL: Alert well-appearing 73-year-old male HEENT: Head atraumatic,EOMI, pupils reactive, face symmetric, moist mucous membranes CARDIOVASCULAR: Regular rate and rhythm without murmurs, rubs or gallops. RESPIRATORY: Breath sounds equal bilaterally, no wheezes rales or rhonchi. ABDOMEN: Soft, nontender. Normoactive bowel sounds all 4 quadrants. No guarding or rebound. EXTREMITIES: Normal range of motion, no clubbing or edema. Neurovascularly intact NEUROLOGICAL: Alert and oriented x4.Normal gait and speech. SKIN: Warm, dry, no laceration, no petechiae, no rashes or lesions. Course Orders Ordered: ED Orders 09/12/23 18:11 CT abdomen pelvis w con Stat 09/12/23 18:33 CBC Auto Diff [Complete Blood Count AUTO DIFF] Stat CMP [Comprehensive Metabolic Panel] Stat Lactate (Lactic Acid) Stat Lipase Stat Procalcitonin Stat 09/12/23 18:35 Blood Culture Stat UA Complete [Urinalysis and Microscopic] Stat Discontinued Medications Cefdinir (Cefdinir 300 Mg Capsule) 300 mg PO NOW ONE Stop: 09/12/23 19:57 Last Admin: 09/12/23 20:26 Dose: 300 mg Documented By: MATEO Ciprofloxacin (Ciprofloxacin 250 Mg Tablet) 500 mg PO NOW ONE Stop: 09/12/23 19:53 Vital Signs Vital signs: Vital Signs - 8 hr 09/12/23 18:36 09/12/23 18:37 09/12/23 18:37 Pulse Rate 66 66 Respiratory Rate 15 Blood Pressure 170/91 H Pulse Oximetry 96 96 Oxygen Delivery Method Room Air 09/12/23 19:00 09/12/23 19:00 09/12/23 20:32 Pulse Rate 63 66 68 Respiratory Rate 24 16 Blood Pressure 140/74 143/81 H Pulse Oximetry 92 94 96 Oxygen Delivery Method Room Air Room Air MDM - Male Genitourinary Lab Data 09/12/23 18:33 09/12/23 18:33 Labs: Lab Results 09/12/23 09/12/23 Range/Units 18:33 18:35 WBC 7.3 (4.5-11.0) X10^3/uL RBC 4.62 (4.5-5.9) X10^6/uL Hgb 13.9 (13.5-17.5) g/dL Hct 40.2 L (41-53) % MCV 87.1 (80-100) fL MCH 30.2 (26-34) PG MCHC 34.6 (30-36) % RDW 14.3 (11.6-14.8) % Plt Count 180 (150-400) X10^3/uL Neut % (Auto) 58.1 (50-75) % Lymph % (Auto) 29.9 (25-40) % Elmore % (Auto) 7.5 (3-14) % Eos % (Auto) 3.8 (2-4) % Baso % (Auto) 0.7 (0-2) % Neut # (Auto) 4200 (6853-3468) /uL Lymph # (Auto) 2200 (9855-2583) /uL Elmore # (Auto) 500 (0-900) /uL Eos # (Auto) 300 (0-450) /uL Baso # (Auto) 0 (0-100) /uL Sodium 138 (137-145) mmol/L Potassium 3.9 (3.4-5.1) mmol/L Chloride 108 H (98-107) mmol/L Carbon Dioxide 27 (22-32) mmol/L BUN 31 H (9-20) mg/dL Creatinine 1.01 (0.66-1.25) mg/dL Estimated GFR > 60 (>60) mL/min BUN/Creatinine Ratio 30.7 H (6-22) Glucose 106 (80-110) mg/dL Lactate 0.7 (0.7-2.1) mmol/L Calcium 8.9 (8.4-10.2) mg/dL Total Bilirubin 0.6 (0.2-1.3) mg/dL AST 34 (17-59) IU/L ALT 25 (<50) IU/L Alkaline Phosphatase 115 (38-126) U/L Total Protein 7.2 (6.3-8.2) g/dL Albumin 4.2 (3.5-5.0) g/dL Globulin 3.0 (1.7-4.1) g/dL Albumin/Globulin Ratio 1.4 (1.0-2.8) Lipase 57 (23-300) U/L Procalcitonin 0.047 (<0.5) ng/mL Urine Color Yellow Urine Appearance Clear Urine pH 5.0 (4.5-8.0) Ur Specific Orwell >=1.030 H (1.000-1.035) Urine Protein Negative (Negative) Urine Glucose (UA) Negative (Negative) g/dL Urine Ketones Trace H (NEGATIVE) Urine Occult Blood Negative (Negative) Urine Nitrate Negative (Negative) Urine Bilirubin Negative (NEGATIVE) Urine Urobilinogen 0.2 (0.2) E.U./dL Ur Leukocyte Esterase Negative (NEGATIVE) Urine RBC None seen (0-5/HPF) Urine WBC None seen (0-5/HPF) Ur Squamous Epith Cells 0-1 /hpf (0-5/HPF) Urine Bacteria None seen (None) Ur Culture Indicated? Cult not indicated Vol Urine Centrifuged 10ml (spun) Imaging Data CT scan - abdomen/pelvis: Radiologist's Impression: PROCEDURE: CT ABDOMEN PELVIS W CON INDICATIONS: lower pelvic pain, hx prostatitis TECHNIQUE: After the administration of intravenous contrast, axial sections acquired from the lung bases to the pubic symphysis. Coronal and sagittal reformats were performed. For radiation dose reduction, the following was used: automated exposure control, adjustment of mA and/or kV according to patient size. COMPARISON: [facility], CT, CT KUB, 10/20/2022, 17:17. [facility], CT, CT ABDOMEN PELVIS W CON, 12/31/2021, 16:53. FINDINGS: Image quality: Diagnostic. Lower Chest: No significant findings. ABDOMEN: Liver: No solid mass. Gallbladder: Tiny layering gallstones versus sludge can be seen. No additional CT findings of cholecystitis are seen. Biliary ducts: No biliary dilation. Pancreas: No ductal dilation. Spleen: Size is within normal limits. Adrenal Glands: No adrenal nodules. Kidneys and Ureters: No hydronephrosis. No solid mass. No complex renal cystic lesion which requires follow up. At the inferior pole of the left kidney, there is a water density cyst seen. There is a 4 mm nonobstructing left-sided kidney stone. Stomach and Bowel: Extensive distal colonic diverticulosis is seen, without findings of active diverticulitis. The more proximal colon is within normal limits. No dilated loops of small bowel are seen. Peritoneum: No abnormal intraperitoneal fluid. No free air. Ventral Wall: Periumbilical hernia repair can be seen. No recurrent hernia is seen. Abdominal Nodes: No retroperitoneal or mesenteric adenopathy by size criteria. Vessels: Aorta and inferior vena cava are normal in size. PELVIS: Pelvic Organs: 6.2 cm transversely. Bladder: No bladder wall thickening, accounting for underdistention. Pelvic Nodes: No enlarged lymph nodes. Miscellaneous: There is a [id number] fat containing right inguinal hernia. Bones: No aggressive osseous abnormality. Levoconvex scoliotic curvature is seen. Multiple levels of significant lumbar spine degenerative change can be seen. IMPRESSION: Enlarged, irregular prostate gland. Extensive distal colonic diverticulosis, without findings of active diverticulitis. Additional findings: Tiny layering gallstones versus sludge. 4 mm nonobstructing left-sided kidney stone Prior periumbilical hernia repair Levoconvex scoliotic curvature Multiple levels of lumbar spine degenerative change Fat containing right inguinal hernia Dictated by: Job Valdez M.D. on 09/12/2023 at 18:43 MDM Narrative Medical decision making narrative: Patient 73-year-old male history of prostatitis presents today with pain and perineal area. He has been ongoing for a couple of days. He has no fever he overall appears well. Vitals are stable not tachycardic hypotensive or febrile ED. Blood work has been reviewed he has no leukocytosis lactic acidosis, lactate 0.7, or elevated procalcitonin, procalcitonin 0.047. Urinalysis is negative. Electrolytes are stable without evidence of OLY Urinalysis does not show any evidence of leukocytosis nitrates or bacteria CT imaging does show an irregularly shaped prostate no evidence of diverticulitis or other pelvic abscess or abdominal etiology Patient reports that he has had Cipro a couple months ago he needed to be on Cipro for about 6 weeks because it did not work. He reports he is never seen a urologist he has not had a biopsy or any evaluation of his prostate. This may early prostatitis but also strongly encourage him to follow up with Urology for biopsy with an irregularly shaped prostate. He is given cefdinir here in the ED. No evidence of sepsis at this time and he is clinically stable. Discharge Plan Departure Patient Disposition: Home Clinical Impression: Acute prostatitis Instructions: DI for Acute Prostatitis Activity Restrictions/Additional Instructions: *You have been diagnosed with prostatitis *What to do: At this time your prostate is irregularly shaped. I strongly encourage you to follow-up with urology for biopsy and other workup. Blood work and urinalysis are overall reassuring today. Will start you on an antibiotic but it may or may not help. You will also need to follow-up with your PCP. *Continue to take medications as directed Cefdinir 300 mg twice a day for 10 days *Follow up with your primary care provider in 2-3 days or call [phone] *Return to ER if you should have fever increasing pain inability to urinate [or] any new, worsening or concerning symptoms Prescriptions: New cefdinir 300 mg capsule 300 mg PO Q12H Qty: 20 0RF No Action polyethylene glycol 3350 [Miralax] 119 GM powder 17 gm PO QDAY Qty: 0 ibuprofen 200 mg tablet 200 mg PO BID propranolol 60 mg tablet 60 mg PO ONCE dextroamphetamine sulfate [Dexedrine Spansule] 15 mg capsule, extended release See Rx Instructions .ROUTE .COMPLEX Rx Instructions: 30 mg orally AM and 15mg at lunch lamotrigine [Lamictal] 100 mg tablet 100 mg PO DAILY tamsulosin 0.4 mg capsule 0.8 mg PO BEDTIME omeprazole 20 mg capsule,delayed release(DR/EC) 20 mg PO BID testosterone 1 % (50 mg/5 gram) gel in packet 1 packet transdermal DAILY gabapentin 300 mg Capsule 300 mg PO QID PRN (Reason: neuropathy) duloxetine 60 mg capsule,delayed release(DR/EC) 60 mg PO DAILY Patient Comments: TAKE ONE CAPSULE BY MOUTH ONE TIME DAILY cholecalciferol (vitamin D3) [Vitamin D3] 50 mcg (2,000 unit) Capsule 50 mcg PO DAILY trazodone 50 mg tablet 50 mg PO DAILY albuterol 90 mcg/actuation Aerosol 90 mcg INHALATION Q4HR PRN (Reason: Shortness Of Breath) oxycodone 5 mg tablet 5 mg PO Q6H PRN (Reason: pain) Qty: 30 0RF acetaminophen [Tylenol] 325 mg capsule 650 mg PO QID PRN (Reason: pain) Qty: 60 0RF sulfamethoxazole-trimethoprim [Bactrim DS] 800-160 mg tablet 1 tab PO BID Qty: 14 0RF Referrals: Dee Dee Chen MD [Physician] - Adalberto Woodall MD [Physician] - Kyle Burger MD [Primary Care Provider] - Stand Alone Forms: Patient Portal/API
--- NOTE | 2023-09-12 18:11 | DI.CT.S_ITS ---
PROCEDURE: CT ABDOMEN PELVIS W CON INDICATIONS: lower pelvic pain, hx prostatitis TECHNIQUE: After the administration of intravenous contrast, axial sections acquired from the lung bases to the pubic symphysis. Coronal and sagittal reformats were performed. For radiation dose reduction, the following was used: automated exposure control, adjustment of mA and/or kV according to patient size. COMPARISON: [facility], CT, CT KUB, 10/20/2022, 17:17. [facility], CT, CT ABDOMEN PELVIS W CON, 12/31/2021, 16:53. FINDINGS: Image quality: Diagnostic. Lower Chest: No significant findings. ABDOMEN: Liver: No solid mass. Gallbladder: Tiny layering gallstones versus sludge can be seen. No additional CT findings of cholecystitis are seen. Biliary ducts: No biliary dilation. Pancreas: No ductal dilation. Spleen: Size is within normal limits. Adrenal Glands: No adrenal nodules. Kidneys and Ureters: No hydronephrosis. No solid mass. No complex renal cystic lesion which requires follow up. At the inferior pole of the left kidney, there is a water density cyst seen. There is a 4 mm nonobstructing left-sided kidney stone. Stomach and Bowel: Extensive distal colonic diverticulosis is seen, without findings of active diverticulitis. The more proximal colon is within normal limits. No dilated loops of small bowel are seen. Peritoneum: No abnormal intraperitoneal fluid. No free air. Ventral Wall: Periumbilical hernia repair can be seen. No recurrent hernia is seen. Abdominal Nodes: No retroperitoneal or mesenteric adenopathy by size criteria. Vessels: Aorta and inferior vena cava are normal in size. PELVIS: Pelvic Organs: 6.2 cm transversely. Bladder: No bladder wall thickening, accounting for underdistention. Pelvic Nodes: No enlarged lymph nodes. Miscellaneous: There is a [id number] fat containing right inguinal hernia. Bones: No aggressive osseous abnormality. Levoconvex scoliotic curvature is seen. Multiple levels of significant lumbar spine degenerative change can be seen. IMPRESSION: Enlarged, irregular prostate gland. Extensive distal colonic diverticulosis, without findings of active diverticulitis. Additional findings: Tiny layering gallstones versus sludge. 4 mm nonobstructing left-sided kidney stone Prior periumbilical hernia repair Levoconvex scoliotic curvature Multiple levels of lumbar spine degenerative change Fat containing right inguinal hernia Dictated by: Job Valdez M.D. on 09/12/2023 at 18:43 Approved by: Job Valdez M.D. on 09/12/2023 at 18:46
[2023-09-12 18:36] VITALS: PULSE 66; O2SAT 96
[2023-09-12 18:37] VITALS: BP 170/91; PULSE 66; RESP 15; O2SAT 96
[2023-09-12 18:48] LABS: Add Manual Diff / Slide Review NO; Basophils Absolute Auto 0 /uL (0-100); Basophils Percent Auto 0.7 % (0-2); Eosinophils Absolute Auto 300 /uL (0-450); Eosinophils Percent Auto 3.8 % (2-4); Hematocrit 40.2 % (41-53); Hemoglobin 13.9 g/dL (13.5-17.5); Lymphocytes Absolute Auto 2200 /uL (1100-4500); Lymphocytes Percent Auto 29.9 % (25-40); Mean Corpuscular HGB Conc 34.6 % (30-36); Mean Corpuscular Hemoglobin 30.2 PG (26-34); Mean Corpuscular Volume 87.1 fL (80-100); Monocytes Absolute Auto 500 /uL (0-900); Monocytes Percent Auto 7.5 % (3-14); Neutrophils Absolute Auto 4200 /uL (1500-7000); Neutrophils Percent Auto 58.1 % (50-75); Platelet Count 180 X10^3/uL (150-400); Red Blood Cell Count 4.62 X10^6/uL (4.5-5.9); Red Cell Distribution Width 14.3 % (11.6-14.8); White Blood Cell Count 7.3 X10^3/uL (4.5-11.0)
[2023-09-12 18:55] LABS: Appearance Urine UA CLEAR; Bilirubin Urine UA NEGATIVE (NEGATIVE); Color Urine UA YELLOW; Glucose Urine UA NEGATIVE (Negative); Ketones Urine UA TRACE (NEGATIVE); Leukocyte Esterase Urine UA NEGATIVE (NEGATIVE); Nitrite Urine UA NEGATIVE (Negative); Occult Blood Urine UA NEGATIVE (Negative); Protein Urine UA NEGATIVE (Negative); Specific Gravity Urine UA >=1.030 (1.000-1.035); Urobilinogen Urine UA 0.2 E.U./dL (0.2)
[2023-09-12 19:00] VITALS: BP 140/74; PULSE 63; PULSE 66; RESP 24; O2SAT 92; O2SAT 94
[2023-09-12 19:03] LABS: Bacteria Urine None Seen; Culture Indicated Urine Cult Not Indicated; RBC Urine None Seen (0-5/HPF); Squamous Epithelial Cell Urine 0-1 /HPF (0-5/HPF); Urine Volume 10mL (spun); WBC Urine None Seen (0-5/HPF)
[2023-09-12 19:28] LABS: Lactate (Lactic Acid) 0.7 mmol/L (0.7-2.1)
[2023-09-12 19:29] LABS: Alanine Aminotransferase 25 IU/L (<50); Albumin 4.2 g/dL (3.5-5.0); Albumin Globulin Ratio 1.4 (1.0-2.8); Alkaline Phosphatase 115 U/L (38-126); Aspartate Aminotransferase 34 IU/L (17-59); BUN Creatinine Ratio 30.7 (6-22); Bilirubin Total 0.6 mg/dL (0.2-1.3); Blood Urea Nitrogen 31 mg/dL (9-20); Calcium 8.9 mg/dL (8.4-10.2); Carbon Dioxide 27 mmol/L (22-32); Chloride 108 mmol/L (98-107); Estimated Glomerular Filt Rate > 60 mL/min (>60); Glucose 106 mg/dL (80-110); HEMOLYSIS < 15 (0-50); Lipase 57 U/L (23-300); Potassium 3.9 mmol/L (3.4-5.1); Sodium 138 mmol/L (137-145); Total Protein 7.2 g/dL (6.3-8.2)
--- NOTE | 2023-09-12 19:29 | PC.NURSE ---
Introduced self to pt. Pt denies pain at this time. Pt to CT for scan via flash.
[2023-09-12 19:46] LABS: Procalcitonin 0.047 ng/mL (<0.5)
[2023-09-12] MEDS: CEFDINIR 300 MG CAPSULE PO (20:26)
[2023-09-12 20:32] VITALS: BP 143/81; PULSE 68; RESP 16; O2SAT 96
== END 2023-09-12 20:35 | disposition home or self-care (01) ==
PROVIDERS: Emergency Provider Emergency Medicine; Family Provider Internal Medicine; PCP Family Medicine
DX: N41.0 Acute prostatitis (principal)
CPT/HCPCS: 36415; 74177; 80053; 81001; 83605; 83690; 84145; 85025; 87040; 99284; Q9967

== ENCOUNTER → 2024-01-28 20:39 | Outpatient (CLI) | payer OTHER, SELFPAY ==
--- NOTE | 2024-01-28 20:41 | DI.RAD.S_ITS ---
P mild ROCEDURE: XR TIBIA FUBULA RT 2V INDICATIONS: PAIN IN RT KNEE TECHNIQUE: 2 views of the tibia and fibula were acquired. COMPARISON: None. FINDINGS: Bones: Ununited old avulsion fracture of the lateral malleolus hip appreciated. There is also a partially united old avulsion fracture of the dorsal cortex of the distal talar neck Joints: Moderate patellofemoral and medial tibial femoral degenerative change appreciated. There is a 8 mm loose body in the anterior tibial femoral joint. Ankle mortise is normal. Soft tissues: No soft tissue abnormality. IMPRESSION: Degeneration and other chronic findings. Dictated by: Los Gomez M.D. on 01/29/2024 at 8:11 Approved by: Los Gomez M.D. on 01/29/2024 at 8:13
--- NOTE | 2024-01-28 20:42 | DI.RAD.S_ITS ---
PROCEDURE: XR HIP W PEL IF DONE RT 2V INDICATIONS: PAIN IN RT KNEE TECHNIQUE: Two views of the hip were acquired. COMPARISON: None. FINDINGS: Bones: Moderate empthesopathic changes seen in both anterior ilium SI and hip joints: Severe right and moderate left hip degeneration noted. There is mild bilateral SI degeneration. Severe L5-S1 degenerative disc disease noted. Soft tissues: No soft tissue swelling, calcification or mass. IMPRESSION: Degeneration Dictated by: Los Gomez M.D. on 01/29/2024 at 8:37 Approved by: Los Gomez M.D. on 01/29/2024 at 8:38
== END ==
PROVIDERS: Family Provider Internal Medicine; PCP Family Medicine; Referring Provider Family Medicine; Visit Provider Family Medicine
DX: M16.0 Bilateral primary osteoarthritis of hip (principal); M51.379 Other intervertebral disc degeneration, lumbosacral region without mention of lumbar back pain or lower extremity pain; M25.551 Pain in right hip; M25.561 Pain in right knee; S82.61XS Displaced fracture of lateral malleolus of right fibula, sequela; M23.41 Loose body in knee, right knee
CPT/HCPCS: 73502; 73590

== ENCOUNTER → 2024-05-23 19:54 | Outpatient (CLI) | payer OTHER, SELFPAY ==
--- NOTE | 2024-05-23 19:59 | DI.RAD.S_ITS ---
PROCEDURE: XR SHOULDER LT MIN 2V INDICATIONS: pain and crunching in left shoulder TECHNIQUE: Three views of the shoulder were acquired. COMPARISON: None. FINDINGS: Bones: No fractures or dislocations. Moderate glenohumeral joint space loss and prominent spurring at the inferior glenohumeral joint. Mild irregularity, possibly enthesopathy along the greater tuberosity. Mild degenerative change at the acromioclavicular junction. No suspicious bony lesions. Visualized ribs appear intact. Soft tissues: No suspicious soft tissue calcifications. IMPRESSION: Moderate glenohumeral joint osteoarthritis. Enthesopathy or trace calcific tendinitis at the rotator cuff insertion. Dictated by: Dorcas Ibrahim M.D. on 05/24/2024 at 11:10 Approved by: Dorcas Ibrahim M.D. on 05/24/2024 at 11:11
== END ==
PROVIDERS: Family Provider Internal Medicine; PCP Family Medicine; Referring Provider Family Medicine; Visit Provider Family Medicine
DX: M19.012 Primary osteoarthritis, left shoulder (principal); M25.512 Pain in left shoulder
CPT/HCPCS: 73030

== ENCOUNTER 2024-12-02 06:32 | Day surgery (SDC) | payer OTHER, SELFPAY ==
[2024-11-25 12:23] VITALS: BMI 28.8
[2024-12-02] VITALS (8 sets, daily range): BP systolic 125–180; BP diastolic 66–86; PULSE 57–82; RESP 16–21; TEMP 36.4–36.6; O2SAT 94–99; BMI 28.2
--- NOTE | 2024-12-02 06:08 | PM.PREOP ---
Pre-operative Note Interval Note History & Physical reviewed/Exam performed by Physician: Yes Changes to H&P: No ASA Class (for procedural sedation): II
[2024-12-02] MEDS: LACTATED RINGERS 1,000 ML 42 ML IV (07:18)
[2024-12-02] MEDS: ACETAMINOPHEN 325 MG TABLET 650 MG PO (07:37)
--- NOTE | 2024-12-02 08:11 | SUR.OPER ---
Dr Ahmadi was consulted regarding use of sevoflurane during case due to family history of malignant hyperthermia. Andre campos to proceed.
--- NOTE | 2024-12-02 08:20 | SUR.OPER ---
Anesthesia machine was purged per malignant hyperthermia protocol prior to start of case.
--- NOTE | 2024-12-02 09:09 | PM.OP.1 ---
Operative Date/Time/Diagnoses Date of procedure: 12/02/24 Time of procedure: 09:09 Pre-op diagnosis: RIH Post-op diagnosis: same (Indirect RIH) Procedure & Clinicians Procedure: Laparoscopic right inguinal hernia repair with mesh TEP Same procedure(s) as scheduled: Yes Indications: 74yo M with symptomatic RIH Surgeon: Luis Armando Arana Click Yes if Unassisted: Yes Anesthesia Type: General Operative Notes Findings: Indirect RIH, cord lipoma Specimen(s): none sent Applied: none Estimated Blood Loss (mL): 20 Blood products transfused: none Procedure in detail: After informed consent and satisfactory general endotracheal anesthesia, the abdomen and groins were shaved, prepped and draped in the usual sterile manner. Surgical time-out was performed with all team members in agreement. The patient received appropriate antibiotics and VTE prophylaxis. The preperitoneal space was entered via an infraumbilical incision and bluntly dissected. The 10 mm trocar was then inserted and the preperitoneal space was insufflated to a pressure of 12 mmHg, later increased to 15mmHg for exposure. Two 5 mm trocars were inserted under direct vision in suprapubic location. The patient was placed in Trendelenburg position. The camera was used to further dissect out the preperitoneal space. Then blunt graspers were used to dissect out the space completely exposing the pubic bone in the midline, the Spencer's ligament, the direct area and the lateral area out to the anterior superior iliac spine. An ilioinguinal block was performed by injecting local anesthetic 2 fingerbreadths medial to the anterior superior iliac spine under direct vision, raising a wheal in the transversus muscle. We used a total of 30 cc of 0.5% Marcaine with epinephrine. The patient was noted to have a large indirect inguinal hernia and a large cord lipoma. The hernia sac was bluntly dissected off of the cord structures until it was well proximal for wide mesh coverage. The large cord lipoma was dissected proximally as well. We noticed that the inferior epigastric vessels were quite posterior and these required division between double clips to allow the mesh to lay in a flat position. The large Bard 3D right mesh was selected and inserted into the preperitoneal space and made sure to lay in a flat position. The mesh covered all potential hernia defects widely. Hemostasis was adequate throughout. We did notice the typical oozing from aspirin but there was no active bleeding with cautery hemostasis. When the pneumoperitoneum was released we noticed the peritoneum pressing against the mesh in a very satisfying manner. The 0 Vicryl heobbj-yf-dycyi suture in the infraumbilical fascia was tied and there were no palpable fascial defects. During the procedure, we had to decompress peritoneal gas with a Veress needle which was successful. We entered the peritoneum at the end and expressed peritoneal carbon dioxide. The skin incisions were closed using 4-0 Monocryl in a subcuticular manner. Dermabond glue was applied as a final dressing. The estimated blood loss was minimal. The instrument sponge and needle counts were all correct x2. The patient tolerated the procedure well and was extubated in the operating room after reversal of general endotracheal anesthesia and transported to the recovery area in stable condition. Complications: none Post-operative Condition: stable Disposition: PACU Plan for aftercare: PACU then home
== END 2024-12-02 10:37 | disposition home or self-care (01) ==
PROVIDERS: PCP Family Medicine; Referring Provider Surgery; Visit Provider Surgery
PROC: 0YQ54ZZ Repair Right Inguinal Region, Percutaneous Endoscopic Approach (ICD-10-PCS; CPT 49650; principal; 2024-12-02 07:45)
DX: K40.90 Unilateral inguinal hernia, without obstruction or gangrene, not specified as recurrent (principal); D17.6 Benign lipomatous neoplasm of spermatic cord
CPT/HCPCS: 49650; 55559; C1781; J0690; J1100; J2405; J2704; J3010; J3490

== ENCOUNTER → 2024-12-28 13:34 | Outpatient (CLI) | payer OTHER, SELFPAY ==
--- NOTE | 2024-12-28 13:37 | DI.RAD.S_ITS ---
PROCEDURE: XR CERVICAL SPINE 2V OR 3V INDICATIONS: PAIN TECHNIQUE: 3 view(s) of the cervical spine were acquired. COMPARISON: None. FINDINGS: Bones: No fractures or dislocations to the C7 level. The lateral masses of C1 appear intact on the odontoid view. No suspicious bony lesions. Moderate spondylosis from C3-4 through C6-7 with moderate bilateral uncovertebral and facet arthrosis. Soft tissues: No prevertebral soft tissue swelling. IMPRESSION: Multilevel spondylosis from C3-4 through C6-7 with uncovertebral and facet arthrosis. Consider correlation with cervical spine MRI. Dictated by: Roly Benito M.D. on 12/28/2024 at 16:59 Approved by: Roly Benito M.D. on 12/28/2024 at 16:59
--- NOTE | 2024-12-28 13:37 | DI.RAD.S_ITS ---
PROCEDURE: XR FOREARM RT 2V INDICATIONS: PAIN TECHNIQUE: 2 views of the forearm were acquired. COMPARISON: None. FINDINGS: Bones: No fractures or dislocations. No suspicious bony lesions. Mild degenerative arthrosis of the radiocapitellar joint. Moderate degenerate arthrosis of the thumb carpometacarpal joint. Soft tissues: No suspicious soft tissue calcifications or masses. IMPRESSION: No acute osseous abnormality. Mild degenerative arthrosis of the elbow. Dictated by: Roly Benito M.D. on 12/28/2024 at 17:00 Approved by: Roly Benito M.D. on 12/28/2024 at 17:00
--- NOTE | 2024-12-28 13:37 | DI.RAD.S_ITS ---
PROCEDURE: XR FOREARM LT 2V INDICATIONS: PAIN TECHNIQUE: 2 views of the forearm were acquired. COMPARISON: None. FINDINGS: Bones: No fractures or dislocations. No suspicious bony lesions. Moderate degenerate arthrosis of the elbow. Soft tissues: No suspicious soft tissue calcifications or masses. IMPRESSION: No acute osseous abnormality. Moderate degenerative arthrosis of the elbow. Dictated by: Roly Benito M.D. on 12/28/2024 at 16:18 Approved by: Roly Benito M.D. on 12/28/2024 at 16:20
== END ==
LOC: RAD 13:35
PROVIDERS: PCP Family Medicine; Referring Provider Family Medicine; Visit Provider Family Medicine
DX: M47.812 Spondylosis without myelopathy or radiculopathy, cervical region (principal); M19.022 Primary osteoarthritis, left elbow; M19.021 Primary osteoarthritis, right elbow; M79.631 Pain in right forearm; M79.632 Pain in left forearm
CPT/HCPCS: 72040; 73090